=== PATIENT | male | born 1955 | race Two or more races ===

== ENCOUNTER 2025-04-18 09:04 | Emergency (ER) | payer MEDICAID, SELFPAY ==
--- NOTE | 2025-04-18 09:07 | EKG_ITS ---
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
[2025-04-18 09:13] VITALS: BP 147/93; PULSE 59; RESP 16; TEMP 36.7; O2SAT 97
[2025-04-18 09:14] VITALS: BMI 29.6
--- NOTE | 2025-04-18 09:16 | XR_ITS ---
EXAMINATION: PA lateral chest 2 views TECHNIQUE: Upright PA lateral chest 2 views Date and time: April 18, 2025, 0937 hours INDICATIONS: Chest pain beginning 1 week ago. FINDINGS: Normal heart size Ectatic thoracic aorta. No pneumonia or pulmonary edema IMPRESSION: No active disease
--- NOTE | 2025-04-18 09:16 | PD.EDRME ---
Rapid Medical Screening Exam [facility] Arrival date/time: 04/18/25 09:04 70-year-old male presents to the emerged from today for complaints of chest pain ongoing x 1 week Chief Complaint: Chest Pain Vital signs: Vital Signs Temperature 98.0 F 04/18/25 09:13 Pulse Rate 59 L 04/18/25 09:13 Respiratory Rate 16 04/18/25 09:13 Blood Pressure 147/93 H 04/18/25 09:13 Pulse Oximetry (%) 97 04/18/25 09:13 Oxygen Delivery Method Room Air 04/18/25 09:13 Vital signs reviewed by provider: Yes Exam: On exam patient well-appearing does not appear look toxic Patient hemodynamically stable Clinical Impression: Lab work and imaging ordered as well as EKG
[2025-04-18 09:38] LABS: Basophils # (Auto) 0.1 Thou/mm3 (0.0-0.2); Basophils % (Auto) 1 % (0-2.5); Eosinophils # (Auto) 0.4 Thou/mm3 (0.0-0.5); Eosinophils % (Auto) 5 % (0-10); Hematocrit 41.8 % (41.0-53.0); Hemoglobin 14.3 g/dL (13.5-16.0); Immature Granulocytes Auto 0.03 Thou/mm3 (0.00-0.00); Lymphocytes # (Auto) 1.9 Thou/mm3 (1.0-4.8); Lymphocytes % (Auto) 24 % (10-50); Mean Corpuscular HGB Conc 34.2 g/dl (31.0-37.0); Mean Corpuscular Hemoglobin 29.6 pg (25.0-35.0); Mean Corpuscular Volume 87 fL (80-100); Monocytes # (Auto) 0.5 Thou/mm3 (0.0-0.8); Monocytes % (Auto) 6 % (0-12); Neutrophils # (Auto) 5.0 Thou/mm3 (1.8-7.7); Neutrophils % (Auto) 64 % (37-80); Nucleated Red Blood Cell # 0.00 Thou/mm3 (0.00-0.00); Nucleated Red Blood Cell % 0 /100 WBC (0); Platelet Count 177 Thou/mm3 (140-440); RDW Standard Deviation 38.3 fL (35.1-43.9); Red Blood Count 4.83 Miln/mm3 (4.50-5.90); White Blood Count 7.7 Thou/mm3 (3.8-10.6)
[2025-04-18 09:58] LABS: B-Type Natriuretic Peptide < 20 pg/mL (0-100); INR 1.0 (0.9-1.3); Partial Thromboplastin Time 25.9 Seconds (22.0-36.0); Prothrombin Time 10.8 Seconds (9.0-12.2)
[2025-04-18 10:03] LABS: Alanine Aminotransferase 31 U/L (10-49); Albumin, Serum 4.5 gm/dL (3.4-4.8); Albumin/Globulin Ratio 2.0 (1.2-2.2); Alkaline Phosphatase 70 U/L (46-116); Anion Gap 6 (7-16); Aspartate Amino Transferase 30 U/L (0-34); BUN/Creatinine Ratio 19 Ratio (12-20); Bilirubin,Total 0.7 mg/dL (0.3-1.2); Blood Urea Nitrogen 17 mg/dL (9-23); Calcium 8.7 mg/dL (8.3-10.6); Calcium (Corrected) 8.7 mg/dL (8.5-10.1); Carbon Dioxide 28.8 mMol/L (20.0-31.0); Chloride 109 mMol/L (98-107); Creatinine (Component) 0.9 mg/dL (0.6-1.3); Estimated Creatinine Clearance 82.2 mL/min (>60); Globulin 2.2 gm/dL (2.3-3.5); Glucose 116 mg/dL (74-106); Magnesium 1.8 mg/dL (1.6-2.6); Osmolality,Calculated 289 (275-295); Potassium 4.6 mMol/L (3.4-5.1); Sodium 144 mMol/L (136-145); Total Protein 6.7 gm/dL (5.7-8.2); Troponin I < 0.020 ng/mL (0.0-0.045); eGFR > 60 See Note
[2025-04-18 10:03] LABS: Amphetamine/Methamp Scrn,U Negative (Negative); Barbiturate Screen,Urine Negative (Negative); Benzodiazepines Screen,Urine Negative (Negative); Benzoylecgonine Screen, Ur Negative (Negative); Fentanyl Screen,Urine Negative (Negative); Opiate Screen,Urine Negative (Negative); THC Screen,Urine Negative (Negative)
--- NOTE | 2025-04-18 11:48 | EDNOTE_ITS ---
<Statement entered by Francia Dennison MD - 04/18/25 16:25> As co-signing physician, I was present and available for consult prn. I concur with the plan and care as documented by the midlevel provider. ED General RME/HPI General Chief complaint: Chest Pain Stated complaint: sob, heaviness in chest worse at night Time Seen by Provider: 04/18/25 11:22 Arrival date/time: 04/18/25 09:04 CC: Chest pain CC: Ongoing for the past 2 weeks, reproducible with palpation worsening with a deep inhalation, denies palpitations fever sweats cough states that sometimes painful to breathe. No prior history of similar events also stating that he has mild epigastric pain. No other complaints. Patient has taken no medications to alleviate the pain. Currently the pain is a 1-2 on a 10 scale RME / HPI RME / HPI narrative: 04/18/25 09:04 70-year-old male presents to the emerged from today for complaints of chest pain ongoing x 1 week Exam: On exam patient well-appearing does not appear look toxic Patient hemodynamically stable Impression: Lab work and imaging ordered as well as EKG Related Data Previous Rx's ?Medication ?Instructions ?Recorded albuterol sulfate 90 mcg/actuation 1 puff inhalation Q ID PRN 05/07/22 aerosol inhaler (Ventolin HFA) shortness of breath or wheezing #8.5 grams amoxicillin 875 mg-potassium 1 tab PO BID #14 tabs clavulanate 125 mg tablet hydrocodone 5 mg-acetaminophen 325 1 tab PO BID PRN pa in #10 tabs 01/11/24 mg tablet nirmatrelvir 300 mg (150 mg See Rx Instructions PO .CO MPLEX 02/26/24 x2)-ritonavir 100 mg tablet,dose #30 tabs pack (Paxlovid) famotidine 20 mg tablet 20 mg PO QDAY #20 tabs 04/18 meloxicam 7.5 mg tablet 7.5 mg PO QDAY #10 tabs 04/08 07/02 Allergies Allergy/AdvReac Type Severity Reaction Status Date / Time No Known Allergies Allergy Verified 04/18/25 09:06 Review of Systems Review of Systems Narrative Review of Systems: GEN: No fever, no chills, no weight loss EYES: No discharge, no visual changes, no pain HEENT: No ear pain, no congestion, no sore throat PULM: No shortness of breath, no cough, no congestion CV: + chest pain, no dyspnea on exertion, no palpitations GI: No nausea, no vomiting, no diarrhea, no pain, no constipation : No frequency, no urgency, no dysuria MUSC/SKEL: No joint pain, no back pain SKIN: No rash PSYCH: No hallucinations, no depression HEME/LYMPH: No easy bleeding or bruising tendencies NEURO: No weakness, no headache Past Medical History Past Medical History NEUROLOGIC: Negative Neurological Disorders or Seizures CARDIAC: Negative Cardiac Disorders or Congestive Heart Failure RESPIRATORY: Negative Chronic Obstructive Pulmonary Disease (COPD) or Asthma GASTROINTESTINAL: Positive Hemorrhoids GENITOURINARY: Negative Genitourinary Disorders or Renal Disease MUSCULOSKELETAL: Negative Musculoskeletal Disorders ENDOCRINE: Negative Diabetes Mellitus Type 1 or Diabetes Mellitus Type 2 HEMATOLOGIC: Negative Sickle Cell Disease OTHER HISTORY: Negative Blood Transfusions, Blood Transfusion Reaction or Anesthesia Reactions Family History FAMILY HISTORY: Negative Family Cardiac Disorders Social History SMOKING STATUS: Never smoker SUBSTANCE USE: does not use ED Exam Narrative Physical exam: [General: acute distress Head normocephalic HEENT: Within acceptable limits Neck is supple nontender Chest equal chest rise nontender to palpation Respiratory: Clear to auscultation no wheezes crackles or rubs CV: Rate rhythm is regular no murmurs rubs or clicks Abdomen is soft nontender no masses positive bowel sounds all 4 quadrants Back: No CVA tenderness no spinous process tenderness from cervical spine thoracic and lumbar spine Skin: Intact no petechiae rash induration ulceration or crepitus Extremities: Moving all extremities against resistance cap refill less than 2 seconds neurosensory intact Neuro: Awake alert oriented x3 Glascow coma 15 no focal deficits] Course Quality Measures none Orders Category Date Time Status EKG (ED ONLY) *Do not use* NOW Care 04/18/25 09:07 Completed EKG (ED Only) Stat Exams 04/18/25 09:07 Draft XR chest 2V Stat Exams 04/18/25 09:16 Completed B-Type Natriuretic Peptide Stat Lab 04/18/25 09:24 Completed CBC Stat Lab 04/18/25 09:24 Completed Comprehensive Metabolic Panel Stat Lab 04/18/25 09:24 Completed Drug Screen,Urine Stat Lab 04/18/25 09:40 Completed Magnesium Stat Lab 04/18/25 09:24 Completed Partial Thromboplastin Time Stat Lab 04/18/25 09:24 Completed Prothrombin Time with INR Stat Lab 04/18/25 09:24 Completed Troponin I Stat Lab 04/18/25 09:24 Completed Vital Signs Vital signs: Vital Signs Temperature 98.0 F 04/18/25 09:13 Pulse Rate 59 L 04/18/25 09:13 Respiratory Rate 16 04/18/25 09:13 Blood Pressure 147/93 H 04/18/25 09:13 Pulse Oximetry (%) 97 04/18/25 09:13 Oxygen Delivery Method Room Air 04/18/25 09:13 Discharge Plan Plan Patient Disposition: HOME (Self Care) Patient condition on transfer: Stable Prescriptions/Referrals Prescriptions/Med Rec: New famotidine 20 mg tablet 20 mg PO QDAY Qty: 20 0RF meloxicam 7.5 mg tablet 7.5 mg PO QDAY Qty: 10 0RF No Action hydrocodone-acetaminophen 5-325 mg tablet 1 tab PO BID MDD 10mg PRN (Reason: pain) Qty: 10 0RF Paxlovid 300 mg (150 mg x 2)-100 mg tablets,dose pack See Rx Instructions .ROUTE .COMPLEX Qty: 30 0RF Rx Instructions: take TWO 150 mg tablets of nirmatrelvir with ONE 100 mg tablet of ritonavir twice daily for 5 days albuterol sulfate [Ventolin HFA] 90 mcg/actuation HFA aerosol inhaler 1 puff inhalation QID PRN (Reason: shortness of breath or wheezing) Qty: 8.5 0RF amoxicillin-pot clavulanate 875-125 mg tablet 1 tab PO BID Qty: 14 0RF Referrals: Anup Hodges MD [Primary Care Provider, Family Practice] - In 1 week Problem List Clinical Impression: Chest pain, Atypical chest pain Patient/Caregiver Discharge Instructions Other Activity Instructions:: Take the medications as prescribed follow-up with your primary care doctor. 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 Labs Labs: interpreted by me Lab(s) Interpretation(s): CBC shows no acute leukocytosis anemia thrombocytopenia Coags within acceptable limits CMP shows no significant electrolyte imbalances other than a chloride of 119 glucose of 116 no transaminitis T. bili elevation Troponin BMP within acceptable limits UDS is negative Imaging Imaging interpretation: interpreted by me Imaging Interpretation(s): Chest x-ray is unremarkable. Diagnosis Differential Diagnosis ED Complaint MDM: Noncardiac chest pain esophagitis reflu x
--- NOTE | 2025-04-18 11:56 | PC.NURSE ---
mendez in to talk with pt in the old triage room
== END 2025-04-18 12:05 | disposition home or self-care (01) ==
PROVIDERS: Nurse Practitioner Primary Care; Emergency Provider Emergency Medicine; PCP Family Medicine
DX: R07.89 Other chest pain (principal)
CPT/HCPCS: 36415; 71046; 80053; 80307; 83735; 83880; 84484; 85025; 85610; 85730; 93005; 99283